=== PATIENT | female | born 1985 | race Caucasian/White ===

== ENCOUNTER 2018-01-06 13:36 | Inpatient (IN) | payer MEDICAID ==
[2018-01-06] MEDS ORDERED: GLUCAGON 1 MG INJ IM (15:00)
[2018-01-06] MEDS ORDERED: DEXTROSE 50% 50 ML SYRINGE IV ×2 (15:00)
[2018-01-06] MEDS ORDERED: GLUCOSE GEL 15 GRAM TUBE PO ×2 (15:00)
[2018-01-06] MEDS ORDERED: GLUCOSE GEL 15 GRAM TUBE BUCCAL (15:00)
[2018-01-06 15:52] LABS: ALANINE AMINOTRANSFERASE 21 IU/L (13-69); ALBUMIN 3.6 g/dl (3.3-4.9); ALBUMIN/GLOBULIN RATIO 1.05; ALKALINE PHOSPHATASE 106 IU/L (42-121); ANION GAP 15 (8-16); ASPARTATE AMINO TRANSFERASE 17 IU/L (15-46); BILIRUBIN,INDIRECT 0.2 mg/dl (0-1.1); BILIRUBIN,TOTAL 0.2 mg/dl (0.2-1.3); BLOOD UREA NITROGEN 18 mg/dl (7-20); CALCIUM 9.1 mg/dl (8.4-10.2); CARBON DIOXIDE 24 mmol/L (21-31); CHLORIDE 104 mmol/L (97-110); CREATININE 0.44 mg/dl (0.44-1.00); GLUCOSE 124 mg/dl (70-220); POTASSIUM 3.9 mmol/L (3.5-5.1); SODIUM 139 mmol/L (135-144)
[2018-01-06] MEDS ORDERED: INSULIN ASPART [NOVOLOG] 3 ML PEN SC (17:35)
[2018-01-06] MEDS ORDERED: ACCU-CHEK XX ×2 (17:35)
[2018-01-06] MEDS: INSULIN ASPART [NOVOLOG] 3 ML PEN SC ×2 (17:35→21:02)
[2018-01-06] MEDS: ACCU-CHEK XX ×3 (17:41→21:04)
[2018-01-06] MEDS: metFORMIN 500 MG TAB PO (17:58)
[2018-01-07] MEDS ORDERED: ACETAMINOPHEN 325 MG TAB PO (03:30)
[2018-01-07] MEDS: ACCU-CHEK XX ×6 (07:30→17:35)
[2018-01-07] MEDS: INSULIN ASPART [NOVOLOG] 3 ML PEN SC (07:35)
[2018-01-07] MEDS: PRENATAL VITAMIN PO (08:44)
[2018-01-07] MEDS: metFORMIN 500 MG TAB PO ×2 (08:44→18:10)
[2018-01-07 09:07] LABS: ADD MAN DIFF? NO
[2018-01-07 09:11] LABS: BASOPHILS % 0.4 % (0.0-2.0); EOSINOPHILS # 0.3 10^3/ul (0.0-0.5); EOSINOPHILS % 4.7 % (0.0-7.0); HEMATOCRIT 34.3 % (37.0-47.0); HEMOGLOBIN 10.6 g/dl (12.0-16.0); LYMPHOCYTES # 2.6 10^3/ul (0.8-2.9); MEAN CORPUSCULAR HEMOGLOBIN 22.3 pg (29.0-33.0); MEAN CORPUSCULAR HGB CONC 30.9 g/dl (32.0-37.0); MEAN CORPUSCULAR VOLUME 72.1 fl (82.0-101.0); MEAN PLATELET VOLUME 10.1 fl (7.4-10.4); MONOCYTE # 0.6 10^3/ul (0.3-0.9); NEUTROPHIL # 3.5 10^3/ul (1.6-7.5); NEUTROPHILS % 49.6 % (39.0-77.0); PLATELET COUNT 319 10^3/UL (140-415); RED BLOOD COUNT 4.76 10^6/ul (4.20-5.40)
[2018-01-07 16:18] LABS: COLLECTION PERIOD 24 hrs
[2018-01-07 16:46] LABS: 24HR URINE TOTAL PROTEIN 277.5 mg/24hrs (42.0-225.0); CREATININE,URINE RANDOM 36.49 mg/dl (20-320); VOLUME 2775 mls
[2018-01-07 16:47] LABS: COLLECTION PERIOD 24 hrs; VOLUME 2775 ml/24hrs
[2018-01-07 16:48] LABS: CREATININE CLEARANCE 159.8 mls/min (84.0-162.0); SCRET 0.44 mg/dl (0.44-1.00)
== END 2018-01-07 19:30 | disposition home or self-care (01) | DRG 781 ==
LOC: PP1 13:36
PROVIDERS: Obstetrics & Gynecology
DX: O24.111 Pre-existing type 2 diabetes mellitus, in pregnancy, first trimester (principal); E11.65 Type 2 diabetes mellitus with hyperglycemia; Z3A.01 Less than 8 weeks gestation of pregnancy; Z79.84 Long term (current) use of oral hypoglycemic drugs
CPT/HCPCS: 76801; 76817; 80053; 82575; 82962; 84156; 84702; 85025; 93005

== ENCOUNTER 2018-02-02 19:19 | Emergency (ER) | payer MEDICAID ==
[2018-02-02 21:58] LABS: ADD MAN DIFF? NO
[2018-02-02 22:02] LABS: WHITE BLOOD COUNT 11.3 10^3/ul (4.8-10.8)
[2018-02-02 22:02] LABS: BASOPHIL # 0.1 10^3/ul (0.0-0.1); BASOPHILS % 0.4 % (0.0-2.0); EOSINOPHILS # 0.5 10^3/ul (0.0-0.5); EOSINOPHILS % 4.1 % (0.0-7.0); HEMATOCRIT 35.1 % (37.0-47.0); HEMOGLOBIN 10.7 g/dl (12.0-16.0); LYMPHOCYTES # 2.9 10^3/ul (0.8-2.9); MEAN CORPUSCULAR HEMOGLOBIN 22.3 pg (29.0-33.0); MEAN CORPUSCULAR HGB CONC 30.5 g/dl (32.0-37.0); MEAN CORPUSCULAR VOLUME 73.1 fl (82.0-101.0); MEAN PLATELET VOLUME 9.3 fl (7.4-10.4); MONOCYTE # 0.9 10^3/ul (0.3-0.9); MONOCYTES % 7.9 % (0.0-11.0); NEUTROPHIL # 6.9 10^3/ul (1.6-7.5); NEUTROPHILS % 61.4 % (39.0-77.0); PLATELET COUNT 338 10^3/UL (140-415); RED CELL DISTRIBUTION WIDTH 14.5 % (11.5-14.5)
[2018-02-02 22:07] LABS: ADD UMIC NO; UR ASCORBIC ACID NEGATIVE (NEGATIVE); UR BILIRUBIN (Dip) NEGATIVE (NEGATIVE); UR BLOOD (Dip) NEGATIVE (NEGATIVE); UR CLARITY CLEAR (CLEAR); UR COLOR YELLOW (YELLOW); UR GLUCOSE (Dip) NEGATIVE (NEGATIVE); UR KETONES (Dip) NEGATIVE (NEGATIVE); UR LEUKOCYTE ESTERASE (Dip) NEGATIVE Leu/ul (NEGATIVE); UR NITRITE (Dip) NEGATIVE (NEGATIVE); UR SPECIFIC GRAVITY (Dip) 1.021 (1.003-1.030); UR TOTAL PROTEIN (Dip) NEGATIVE (NEGATIVE); UR UROBILINOGEN (Dip) 2+ mg/dL (NEGATIVE)
[2018-02-02 22:30] LABS: ALBUMIN 3.8 g/dl (3.3-4.9); ALBUMIN/GLOBULIN RATIO 1.11; ALKALINE PHOSPHATASE 126 IU/L (42-121); ANION GAP 14 (8-16); ASPARTATE AMINO TRANSFERASE 29 IU/L (15-46); BILIRUBIN,INDIRECT 0.3 mg/dl (0-1.1); BILIRUBIN,TOTAL 0.3 mg/dl (0.2-1.3); BLOOD UREA NITROGEN 11 mg/dl (7-20); CALCIUM 9.3 mg/dl (8.4-10.2); CARBON DIOXIDE 26 mmol/L (21-31); CHLORIDE 103 mmol/L (97-110); CREATININE 0.39 mg/dl (0.44-1.00); GLUCOSE 95 mg/dl (70-220); POTASSIUM 4.2 mmol/L (3.5-5.1); SODIUM 139 mmol/L (135-144); TOTAL PROTEIN 7.2 g/dl (6.1-8.1)
[2018-02-02 22:32] LABS: ALANINE AMINOTRANSFERASE < 6 IU/L (13-69)
[2018-02-02 22:48] LABS: ABO/RH TYPE 1 1
== END 2018-02-02 23:50 | disposition home or self-care (01) ==
LOC: FTE 19:19
DX: O26.891 Other specified pregnancy related conditions, first trimester (principal); R10.2 Pelvic and perineal pain; O24.311 Unspecified pre-existing diabetes mellitus in pregnancy, first trimester; Z3A.08 8 weeks gestation of pregnancy; Z79.84 Long term (current) use of oral hypoglycemic drugs
CPT/HCPCS: 36415; 76801; 76817; 80053; 81003; 84702; 85025; 86900; 86901; 99285-25

== ENCOUNTER 2018-03-21 17:53 | Emergency (ER) | payer MEDICAID ==
[2018-03-21 19:04] LABS: ADD MAN DIFF? NO
[2018-03-21 19:05] LABS: WHITE BLOOD COUNT 10.1 10^3/ul (4.8-10.8)
[2018-03-21 19:05] LABS: BASOPHILS % 0.4 % (0.0-2.0); EOSINOPHILS # 0.5 10^3/ul (0.0-0.5); EOSINOPHILS % 4.6 % (0.0-7.0); HEMOGLOBIN 10.5 g/dl (12.0-16.0); LYMPHOCYTES # 2.6 10^3/ul (0.8-2.9); LYMPHOCYTES % 25.4 % (15.0-51.0); MEAN CORPUSCULAR HGB CONC 30.9 g/dl (32.0-37.0); MEAN CORPUSCULAR VOLUME 74.6 fl (82.0-101.0); MEAN PLATELET VOLUME 9.3 fl (7.4-10.4); MONOCYTE # 0.7 10^3/ul (0.3-0.9); MONOCYTES % 6.6 % (0.0-11.0); NEUTROPHIL # 6.3 10^3/ul (1.6-7.5); NEUTROPHILS % 62.7 % (39.0-77.0); PLATELET COUNT 292 10^3/UL (140-415); RED BLOOD COUNT 4.56 10^6/ul (4.20-5.40); RED CELL DISTRIBUTION WIDTH 15.2 % (11.5-14.5)
[2018-03-21 19:09] LABS: ADD UMIC NO; UR ASCORBIC ACID 40 mg/dL (NEGATIVE); UR BILIRUBIN (Dip) NEGATIVE (NEGATIVE); UR BLOOD (Dip) NEGATIVE (NEGATIVE); UR CLARITY CLEAR (CLEAR); UR COLOR YELLOW (YELLOW); UR GLUCOSE (Dip) NEGATIVE (NEGATIVE); UR KETONES (Dip) NEGATIVE (NEGATIVE); UR LEUKOCYTE ESTERASE (Dip) NEGATIVE Leu/ul (NEGATIVE); UR NITRITE (Dip) NEGATIVE (NEGATIVE); UR SPECIFIC GRAVITY (Dip) 1.023 (1.003-1.030); UR TOTAL PROTEIN (Dip) NEGATIVE (NEGATIVE); UR UROBILINOGEN (Dip) 1+ mg/dL (NEGATIVE)
== END 2018-03-21 20:25 | disposition home or self-care (01) ==
LOC: FTE 17:53
DX: O26.892 Other specified pregnancy related conditions, second trimester (principal); R10.2 Pelvic and perineal pain; R10.31 Right lower quadrant pain; Z3A.16 16 weeks gestation of pregnancy; Z79.84 Long term (current) use of oral hypoglycemic drugs
CPT/HCPCS: 36415; 76805; 81003; 84702; 85025; 99284-25

== ENCOUNTER 2018-04-06 16:05 | Emergency (ER) | payer MEDICAID ==
[2018-04-06] MEDS: ACETAMINOPHEN 325 MG TAB PO (17:44)
== END 2018-04-06 19:00 | disposition home or self-care (01) ==
LOC: FTE 16:05
DX: O34.82 Maternal care for other abnormalities of pelvic organs, second trimester (principal); N75.0 Cyst of Bartholin's gland; Z3A.16 16 weeks gestation of pregnancy
CPT/HCPCS: 56420; 99284-25

== ENCOUNTER 2018-04-08 17:06 | Emergency (ER) | payer MEDICAID | END 2018-04-08 19:37 | disposition home or self-care (01) | LOC: FTE 17:06 | DX: O36.8121 Decreased fetal movements, second trimester, fetus 1 (principal); O24.312 Unspecified pre-existing diabetes mellitus in pregnancy, second trimester; Z3A.18 18 weeks gestation of pregnancy; Z48.01 Encounter for change or removal of surgical wound dressing; Z79.84 Long term (current) use of oral hypoglycemic drugs | CPT/HCPCS: 76805; 99284-25 ==

== ENCOUNTER 2018-07-16 12:50 | Inpatient (IN) | payer MEDICAID ==
[2018-07-16] MEDS: LACTATED RINGER'S 1,000 ML IV ×2 (16:36→20:55)
[2018-07-16] MEDS ORDERED: GLUCOSE GEL 15 GRAM TUBE BUCCAL (17:00)
[2018-07-16] MEDS ORDERED: GLUCAGON 1 MG INJ IM (17:00)
[2018-07-16] MEDS ORDERED: DEXTROSE 50% 50 ML SYRINGE IV ×2 (17:00)
[2018-07-16] MEDS ORDERED: GLUCOSE GEL 15 GRAM TUBE PO ×2 (17:00)
[2018-07-16] MEDS: metFORMIN 500 MG TAB PO (17:34)
[2018-07-16] MEDS: INSULIN REGULAR, HUMAN 100 UNIT/1 ML 3ML VIAL SC (17:38)
[2018-07-16] MEDS: NPH, HUMAN INSULIN ISOPHANE 3ML VIAL SC (21:28)
[2018-07-16] MEDS: METHIMAZOLE 5 MG TAB PO (21:29)
[2018-07-17] MEDS: LACTATED RINGER'S 1,000 ML IV ×2 (05:02→13:03)
[2018-07-17] MEDS: METHIMAZOLE 5 MG TAB PO ×2 (05:54→14:09)
[2018-07-17] MEDS: NPH, HUMAN INSULIN ISOPHANE 3ML VIAL SC (07:51)
[2018-07-17] MEDS: INSULIN REGULAR, HUMAN 100 UNIT/1 ML 3ML VIAL SC (07:51)
[2018-07-17] MEDS: metFORMIN 500 MG TAB PO (07:55)
== END 2018-07-17 14:25 | disposition home or self-care (01) | DRG 833 ==
LOC: OBT 12:50 → L-D 12:50 → OBT 16:00 → L-D 16:00
PROVIDERS: Obstetrics & Gynecology
DX: O36.8130 Decreased fetal movements, third trimester, not applicable or unspecified (principal); Z3A.33 33 weeks gestation of pregnancy
CPT/HCPCS: 76818; 82962

== ENCOUNTER → 2018-07-21 | Outpatient (CLI) | payer MEDICAID ==
[2018-07-21 15:44] LABS: FREE T4 (FREE THYROXINE) 0.46 ng/dl (0.79-2.35)
[2018-07-21 15:58] LABS: THYROID STIMULATING HORMONE 0.392 MIU/L (0.465-4.680)
== END | disposition home or self-care (01) ==
LOC: LAB 14:24
DX: O99.280 Endocrine, nutritional and metabolic diseases complicating pregnancy, unspecified trimester (principal); E05.90 Thyrotoxicosis, unspecified without thyrotoxic crisis or storm; Z3A.00 Weeks of gestation of pregnancy not specified
CPT/HCPCS: 84439; 84443

== ENCOUNTER 2019-02-10 09:50 | Emergency (ER) | payer MEDICAID | END 2019-02-10 13:20 | disposition home or self-care (01) | LOC: E/R 09:50 | DX: M79.642 Pain in left hand (principal); R60.9 Edema, unspecified; L08.9 Local infection of the skin and subcutaneous tissue, unspecified; E11.9 Type 2 diabetes mellitus without complications; Z79.84 Long term (current) use of oral hypoglycemic drugs | CPT/HCPCS: 73130; 73130-LT; 93971; 99284-25 ==